=== PATIENT | female | born 1975 | race Caucasian/White ===

== ENCOUNTER 2022-02-24 04:09 | Inpatient (IN) | payer OTHER ==
[2022-02-17 17:34] VITALS: BMI 20.8
[2022-02-24] MEDS ORDERED: ceFAZolin SODIUM 1 GM VIAL ONE (06:56)
[2022-02-24] MEDS ORDERED: FENTANYL CITRATE/PF 50 MCG/ML VIAL ONE ×7 (07:28→11:17)
[2022-02-24] MEDS ORDERED: LIDOCAINE HCL/PF 2% SDV 5ML VIAL ONE (07:28)
[2022-02-24] MEDS ORDERED: MIDAZOLAM HCL 2 MG/2 ML SINGLE DOSE VIAL ONE (07:28)
[2022-02-24] MEDS ORDERED: PROPOFOL 40 ML ONE (07:28)
[2022-02-24] MEDS ORDERED: TRANEXAMIC ACID 1000 MG/10 ML VIAL IVPUSH ONE (07:30)
[2022-02-24] MEDS ORDERED: CEFAZOLIN 2 GM in DEXTROSE 5%-WATER - 100 ML IVPB ONE (07:30)
[2022-02-24] MEDS ORDERED: ACETAMINOPHEN 1000 MG/100 ML BAG IVPB ONE ×3 (07:30→10:45)
[2022-02-24] MEDS ORDERED: SUCCINYLCHOLINE CHLORIDE 200 MG/10 ML SYRINGE ONE (07:31)
[2022-02-24] MEDS ORDERED: ROCURONIUM BROMIDE 50 MG/5 ML SYRINGE ONE ×2 (07:31→09:34)
[2022-02-24] MEDS ORDERED: BUPIVACAINE LIPOSOME/PF (EXPAREL) 266 MG/20 ML VIAL ONE (07:34)
[2022-02-24] MEDS ORDERED: BUPIVACAINE HCL/PF 0.25% (2.5MG/ML) 10 ML VIAL ONE (07:34)
[2022-02-24] MEDS ORDERED: HEPARIN NA (PORCINE) 5,000 UNITS/ML 1ML VIAL ONE (07:48)
[2022-02-24] MEDS ORDERED: ceFAZolin SODIUM 1 GM VIAL IVPB ONE ×2 (08:40→08:58)
[2022-02-24] MEDS ORDERED: HEPARIN NA (PORCINE) 5,000 UNITS/ML 1ML VIAL SQ ONE (08:42)
[2022-02-24] MEDS ORDERED: KETAMINE HCL 500 MG/10 ML VIAL ONE (09:08)
[2022-02-24] MEDS ORDERED: ONDANSETRON 4 MG/2 ML VIAL ONE (09:33)
[2022-02-24] MEDS ORDERED: DEXAMETHASONE SOD PHOSPHATE 4 MG/1 ML VIAL ONE (09:33)
[2022-02-24] MEDS ORDERED: NEOSTIGMINE METHYLSULFATE 0.5 MG/1 ML - 10 ML MDV ONE (10:00)
[2022-02-24] MEDS ORDERED: GLYCOPYRROLATE 0.2 MG/1 ML VIAL ONE (10:01)
[2022-02-24] MEDS ORDERED: ONDANSETRON 4 MG/2 ML VIAL IVPUSH PRN ×3 (10:44→10:52)
[2022-02-24] MEDS ORDERED: oxyCODONE HCL 5 MG TABLET PO PRN ×2 (10:44→15:02)
[2022-02-24] MEDS ORDERED: LACTATED RINGERS SOLUTION 1,000 ML IV SCH (10:45)
[2022-02-24] MEDS ORDERED: IBUPROFEN 800 MG/8 ML IJ IVPB PRN ×2 (10:52→18:30)
[2022-02-24] MEDS ORDERED: BISACODYL 5 MG TABLET.DR (FP) PO PRN (10:52)
[2022-02-24] MEDS ORDERED: HYDROmorphone *PCA* 10MG/50ML DISP.SYRIN PCA SCH (11:00)
[2022-02-24] MEDS ORDERED: MEPERIDINE HCL 25 MG/ML VIAL ONE (11:17)
[2022-02-24] MEDS: SODIUM CHLORIDE 1,000 ML IV SCH ×2 (13:15→15:23)
[2022-02-24] MEDS: ACETAMINOPHEN 1000 MG/100 ML BAG IVPB SCH ×2 (16:44→22:36)
[2022-02-24] MEDS: CEFAZOLIN 1 GM in DEXTROSE 5%-WATER - 50 ML IVPB SCH (16:46)
[2022-02-24] MEDS: SIMETHICONE 80 MG TAB.CHEW (FP) PO PRN (18:43)
[2022-02-25] MEDS: CEFAZOLIN 1 GM in DEXTROSE 5%-WATER - 50 ML IVPB SCH ×2 (00:27→09:16)
[2022-02-25] MEDS: SIMETHICONE 80 MG TAB.CHEW (FP) PO PRN ×3 (00:34→17:36)
[2022-02-25] MEDS: ACETAMINOPHEN 1000 MG/100 ML BAG IVPB SCH (06:13)
[2022-02-25] MEDS: FERROUS SO4 325 MG TABLET (FP) PO SCH (09:16)
[2022-02-25] MEDS: ENOXAPARIN NA (PORCINE) 40 MG/0.4 ML DISP.SYRIN SQ SCH (09:16)
[2022-02-25 09:17] LABS: HEMATOCRIT 26.3 % (32.4-45.2); HEMOGLOBIN 8.1 GM/dL (10.7-15.3); MCH 22.4 pg (25.7-33.7); MCHC 30.9 g/dl (32.0-36.0); MEAN CELL VOLUME 72.3 fl (80-96); MEAN PLT VOLUME 8.1 fl (7.5-11.1); PLATELET COUNT 269 10^3/uL (134-434); RBC 3.64 M/mm3 (3.60-5.2); RDW 22.4 % (11.6-15.6); WHITE BLOOD COUNT 9.8 K/mm3 (4.0-10.0)
[2022-02-25 09:39] LABS: CALCIUM 7.9 mg/dL (8.5-10.1)
[2022-02-25 09:41] LABS: BLOOD UREA NITROGEN 5.5 mg/dL (7-18)
[2022-02-25 09:43] LABS: CREATININE 0.6 mg/dL (0.55-1.3)
[2022-02-25] MEDS: DOCUSATE SODIUM 100 MG CAPSULE (FP) PO PRN (10:32)
[2022-02-25] MEDS: IBUPROFEN 600 MG TABLET (FP) PO PRN ×3 (10:33→20:13)
[2022-02-25] MEDS: ACETAMINOPHEN 500 MG TABLET (FP) PO PRN (17:01)
[2022-02-26] MEDS: ACETAMINOPHEN 500 MG TABLET (FP) PO PRN ×2 (00:47→09:29)
[2022-02-26] MEDS: IBUPROFEN 600 MG TABLET (FP) PO PRN ×2 (02:14→08:34)
[2022-02-26] MEDS: SIMETHICONE 80 MG TAB.CHEW (FP) PO PRN (02:15)
[2022-02-26] MEDS: ENOXAPARIN NA (PORCINE) 40 MG/0.4 ML DISP.SYRIN SQ SCH (09:29)
[2022-02-26] MEDS: DOCUSATE SODIUM 100 MG CAPSULE (FP) PO PRN (09:29)
[2022-02-26] MEDS: FERROUS SO4 325 MG TABLET (FP) PO SCH (09:29)
[2022-02-26 10:27] VITALS: BP 126/82; PULSE 80; RESP 16; TEMP 98.2
== END 2022-02-26 12:45 | disposition home or self-care (01) | DRG 519 ==
LOC: J2C 04:09 → EDSTATUS 08:00 → J3W 14:59
PROVIDERS: ADMIT Specialist; ATTEND Specialist
PROC: 0UT70ZZ Resection of Bilateral Fallopian Tubes, Open Approach (ICD-10-PCS; 2022-02-24)
PROC: 0UT10ZZ Resection of Left Ovary, Open Approach (ICD-10-PCS; 2022-02-24)
PROC: 0DNW0ZZ Release Peritoneum, Open Approach (ICD-10-PCS; 2022-02-24)
PROC: 0U5B0ZZ Destruction of Endometrium, Open Approach (ICD-10-PCS; 2022-02-24)
PROC: 0UT90ZL Resection of Uterus, Supracervical, Open Approach (ICD-10-PCS; principal; 2022-02-24 08:00)
DX: D25.9 Leiomyoma of uterus, unspecified (principal); D50.9 Iron deficiency anemia, unspecified; R10.2 Pelvic and perineal pain; K66.0 Peritoneal adhesions (postprocedural) (postinfection); N80.9 Endometriosis, unspecified
CPT/HCPCS: 36415; 80048; 80053; 81025; 85027; 85610; 85730; 86850; 86900; 86901; 88302-TC; 94010; 94760; C9803-CS; J1644; U0003; U0005